=== PATIENT | female | born 1955 | race Caucasian/White ===

== ENCOUNTER → 2018-01-28 | Outpatient (CLI) | payer MEDICARE, OTHER | LOC: M.RAD 09:15 | DX: Z12.31 Encounter for screening mammogram for malignant neoplasm of breast (principal) ==

== ENCOUNTER → 2019-03-30 | Outpatient (CLI) | payer MEDICARE, OTHER | LOC: M.RAD 09:17 | DX: Z12.31 Encounter for screening mammogram for malignant neoplasm of breast (principal) ==

== ENCOUNTER → 2019-04-03 | Outpatient (CLI) | payer MEDICARE, OTHER | LOC: M.RAD 09:08 | DX: R92.1 Mammographic calcification found on diagnostic imaging of breast (principal) ==

== ENCOUNTER → 2020-05-02 | Outpatient (CLI) | payer MEDICARE, OTHER | LOC: M.RAD 10:27 | PROVIDERS: ATTEND Internal Medicine | DX: Z12.31 Encounter for screening mammogram for malignant neoplasm of breast (principal) ==